=== PATIENT | female | born 1970 | race Caucasian/White ===

== ENCOUNTER 2018-11-27 11:54 | Emergency (ER) | payer MEDICAID, OTHER ==
[2018-11-27] MEDS ORDERED: ONDANSETRON HCL INJ/PF 4 MG/2 ML SDV IV ONE (12:02)
--- NOTE | 2018-11-27 12:03 | ER Document Report ---
ED Medical Screen (RME) - General Chief Complaint: Abdominal Pain Stated Complaint: INTOXICATED Time Seen by Provider: 11/27/18 12:00 Primary Care Provider: MONTSE JOHNSON MD [Primary Care Provider] - Follow up as needed Mode of Arrival: Wheelchair Information source: Patient, Friend Notes: Patient presents requesting treatment for alcoholism but also complains of right upper quadrant abdominal pain for the past 2 weeks. Patient does report nausea and vomiting. Patient does admit to drinking alcohol today. Patient does have a history of cirrhosis as well as COPD. I have greeted and performed a rapid initial assessment of this patient. A comprehensive ED assessment and evaluation of the patient, analysis of test results and completion of the medical decision making process will be conducted by additional ED providers. - Related Data Allergies/Adverse Reactions: Penicillins Allergy (Verified 11/27/18 12:02) Past Medical History - Social History Chew tobacco use (# tins/day): No Frequency of alcohol use: Heavy Drug Abuse: Marijuana Physical Exam - General Notes: Smells of alcohol, slurring of words, bilateral rhonchi, tenderness to right upper quadrant Doctor's Discharge - Discharge Referrals: MONTSE JOHNSON MD [Primary Care Provider] - Follow up as needed
[2018-11-27 12:49] LABS: ABSOLUTE BASOPHILS # (AUTO) 0.1 10^3/uL (0.0-0.2); ABSOLUTE EOSINOPHILS # (AUTO) 0.1 10^3/uL (0.0-0.6); ABSOLUTE LYMPHOCYTES (AUTO) 1.9 10^3/uL (0.5-4.7); ABSOLUTE MONOCYTES (AUTO) 0.4 10^3/uL (0.1-1.4); ABSOLUTE NEUT (AUTO) 3.2 10^3/uL (1.7-8.2); BASOPHILS % (AUTO) 1.2 % (0-2); EOSINOPHILS % (AUTO) 2.3 % (0-6); HEMOGLOBIN 16.1 g/dL (12.0-15.5); LYMPHOCYTES % (AUTO) 33.5 % (13-45); MEAN CORPUSCULAR HEMOGLOBIN 32.7 pg (27.0-33.4); MEAN CORPUSCULAR HGB CONC 34.3 g/dL (32.0-36.0); MEAN CORPUSCULAR VOLUME 95 fl (80-97); MONOCYTES % (AUTO) 6.6 % (3-13); PLATELET COUNT 301 10^3/uL (150-450); RED BLOOD COUNT 4.93 10^6/uL (3.72-5.28); RED CELL DISTRIBUTION WIDTH 13.7 % (11.5-14.0); SEGMENTED NEUTROPHILS % (AUTO) 56.4 % (42-78); TOTAL CELLS COUNTED % (AUTO) 100 %; WHITE BLOOD COUNT 5.8 10^3/uL (4.0-10.5)
--- NOTE | 2018-11-27 13:02 | RADIOLOGY REPORT (SQ) ---
EXAM DESCRIPTION: U/S ABDOMEN LIMITED W/O DOP COMPLETED DATE/TIME: 11/27/2018 12:47 pm REASON FOR STUDY: RUQ pain COMPARISON: None. TECHNIQUE: Dynamic and static grayscale images acquired of the abdomen and recorded on PACS. Additio nal selected color Doppler and spectral images recorded. LIMITATIONS: None. FINDINGS: PANCREAS: No masses. Visualized pancreatic duct normal caliber. LIVER: No masses. Echotexture normal. LIVER VASCULATURE: Normal directional flow of the main portal vein and hepatic veins. GALLBLADDER: No stones. Normal wall thickness. No pericholecystic fluid. ULTRASOUND-DETECTED SALOMON'S SIGN: Negative. INTRAHEPATIC DUCTS AND COMMON DUCT: CBD and intrahepatic ducts normal caliber. No filling defects. INFERIOR VENA CAVA: Normal flow. AORTA: No aneurysm. RIGHT KIDNEY: Normal size. Normal echogenicity. No solid or suspicious masses. No hydronephrosis. No calcifications. PERITONEAL AND RIGHT PLEURAL SPACE: No ascites or effusions. OTHER: No other significant findings. IMPRESSION: NORMAL RIGHT UPPER QUADRANT ULTRASOUND. TECHNICAL DOCUMENTATION: JOB ID: [id number] [employer]- All Rights Reserved Reading location - IP/workstation name: [email or web address]
[2018-11-27 13:05] LABS: ALBUMIN 4.9 g/dL (3.5-5.0); ALKALINE PHOSPHATASE 108 U/L (38-126); ANION GAP 16 (5-19); ASPARTATE AMINO TRANSFERASE 43 U/L (14-36); BILIRUBIN,DIRECT 0.2 mg/dL (0.0-0.4); BILIRUBIN,TOTAL 0.3 mg/dL (0.2-1.3); BLOOD UREA NITROGEN 13 mg/dL (7-20); CALCIUM 9.4 mg/dL (8.4-10.2); CARBON DIOXIDE 26 mmol/L (22-30); CHLORIDE 96 mmol/L (98-107); GLUCOSE 99 mg/dL (75-110); POTASSIUM 3.4 mmol/L (3.6-5.0); TOTAL PROTEIN 8.5 g/dL (6.3-8.2)
[2018-11-27 13:22] LABS: ALCOHOL 338 mg/dL (NONE DETECTED)
[2018-11-27] MEDS ORDERED: PANTOPRAZOLE SODIUM 40 MG VIAL IV ONE (14:18)
[2018-11-27] MEDS ORDERED: FAMOTIDINE INJ/PF 20 MG/2 ML SDV IV ONE (14:18)
--- NOTE | 2018-11-27 14:23 | ER Document Report ---
ED General - General Chief Complaint: Abdominal Pain Stated Complaint: INTOXICATED Time Seen by Provider: 11/27/18 12:00 Primary Care Provider: MONTSE JOHNSON MD [EMERITUS] - Follow up as needed Mode of Arrival: Wheelchair - [facility] Notes: Patient is a 48-year-old female with a 20-year history of alcohol dependence, cirrhosis, who presents to the emergency department for evaluation. Initially she states to me that she is here because she would like help quitting drinking. She states she drinks "a lot" of vodka every day. She states she does not know the size of the bottles. She is been drinking daily for 20 years. She states she believes she been self-medicating as she had lost child 3, has been drinking for 19 years since then. She states she has some abdominal pain, she really cannot describe it for me. She believes is secondary to her history of peptic ulcers and cirrhosis. She denies any melena or hematochezia. No emesis. - Related Data Allergies/Adverse Reactions: Penicillins Allergy (Verified 11/27/18 12:02) Home Medications: None Past Medical History - General Information source: Patient, Friend - Social History Smoking Status: Current Every Day Smoker Chew tobacco use (# tins/day): No Frequency of alcohol use: Heavy Drug Abuse: Marijuana Family History: Reviewed & Not Pertinent Patient has suicidal ideation: No Patient has homicidal ideation: No Neurological Medical History: Reports: Hx Seizures GI Medical History: Reports: Hx Cirrhosis, Hx Ulcer Review of Systems - Review of Systems Constitutional: No symptoms reported EENT: No symptoms reported Cardiovascular: No symptoms reported Respiratory: See HPI Gastrointestinal: No symptoms reported Genitourinary: No symptoms reported Musculoskeletal: No symptoms reported Skin: No symptoms reported Neurological/Psychological: See HPI Physical Exam - Vital signs Vitals: Pulse Resp BP Pulse Ox 108 H 20 101/58 L 90 L 11/27/18 12:02 11/27/18 12:02 11/27/18 12:02 11/27/18 12:02 - Notes Notes: Vital signs reviewed, please refer to chart. Head is normocephalic, atraumatic. Pupils equal round, reactive to light. Neck is supple without meningismus. Heart is regular rate and rhythm. Lungs are clear to auscultation bilaterally. Abdomen is soft, nontender, normoactive bowel sounds throughout. Extremities without cyanosis, clubbing. Posterior calves are nontender. Peripheral pulses are equal. Skin is warm and dry. Patient is awake, alert, neurological exam is nonfocal. He smells strongly of alcohol, diminished eye contact. She is intermittently tearful. Course - Re-evaluation Re-evalutation: 11/27/18 14:21 Patient presents emergency department for evaluation. She complains of alcohol dependence and abuse, is interested in receiving help. She also complained of some abdominal pain. Her laboratory investigations showed no clear etiology of her abdominal pain. Her ultrasound was unremarkable. My suspicion is that she is suffering from alcoholic gastritis. She is given Pepcid and Protonix here. At this point her blood alcohol level is very high, but she is coherent, able to interact well with examiner. Will place consult for psychosocial evaluation. 11/27/18 18:20 Psychosocial evaluation placed. We are setting up outpatient referral, possible care at [facility]. Patient became extremely agitated. She states that she wants to leave. She denies any suicidal or homicidal ideation. She denies any visual or auditory hallucination. Patient is not actively a danger to herself beyond her substance abuse, which is not new. I do not believe any criteria have been met to keep her against her will. The patient will be discharged, she is awaiting for a ride. She is given outpatient resources for alcohol abuse treatment. - Vital Signs Vital signs: Temp Pulse Resp BP Pulse Ox 108 H 24 H 115/83 94 11/27/18 12:02 11/27/18 17:01 11/27/18 17:00 11/27/18 17:01 - Laboratory Result Diagrams: 11/27/18 12:27 11/27/18 12:27 Laboratory results interpreted by me: 11/27/18 11/27/18 11/27/18 12:27 12:27 13:03 Hgb 16.1 H Potassium 3.4 L Chloride 96 L Est GFR (MDRD) Non-Af 51 L AST 43 H Ammonia < 8.7 L Total Protein 8.5 H Serum Alcohol 338 H* - Diagnostic Test Radiology reviewed: Reports reviewed Radiology results interpreted by me: 11/27/18 14:21 Abdomen Ultrasound 11/27/18 12:04 IMPRESSION: NORMAL RIGHT UPPER QUADRANT ULTRASOUND. Discharge - Discharge Clinical Impression: Alcohol abuse with intoxication, Alcoholic gastritis Condition: Stable Disposition: HOME, SELF-CARE Instructions: Abdominal Pain ([facility]), Chronic Alcoholism ([facility]), Acute Alcohol Intoxication ([facility]) Additional Instructions: Take medication as prescribed. Try to abstain from drinking. Follow-up as an outpatient as referred. Follow-up with your primary care physician this week. Return to the emergency department with worsening or new concerning symptoms of any sort. Referrals: MONTSE JOHNSON MD [EMERITUS] - Follow up as needed
--- NOTE | 2018-11-27 14:31 | RADIOLOGY REPORT (SQ) ---
EXAM DESCRIPTION: ACUTE ABDOMEN SERIES COMPLETED DATE/TIME: 11/27/2018 2:11 pm REASON FOR STUDY: cough, RUQ pain COMPARISON: None. NUMBER OF VIEWS: Three views. TECHNIQUE: Frontal chest, supine abdomen and upright/decubitus abdomen radiographic images acquired. LIMITATIONS: None. FINDINGS: CHEST: Lungs clear of infiltrates. FREE AIR: None. No abnormal gas collections. BOWEL GAS PATTERN: Nonobstructive pattern. No dilated loops or air fluid levels. CALCIFICATIONS: No suspicious calcifications. HARDWARE: None in the abdomen. SOFT TISSUES: No gross mass or suggestion of organomegaly. BONES: No acute fracture. No worrisome bone lesions. OTHER: No other significant finding. IMPRESSION: NO RADIOGRAPHIC EVIDENCE FOR ACUTE ABDOMINAL DISEASE. TECHNICAL DOCUMENTATION: JOB ID: [id number] [employer]- All Rights Reserved Reading location - IP/workstation name: [email or web address]
[2018-11-27 18:01] VITALS: BP 115/83
[2018-11-27 19:49] LABS: APPEARANCE,URINE SLIGHTLY-CLOUDY; BILIRUBIN,URINE NEGATIVE (NEGATIVE); COLOR,URINE YELLOW; GLUCOSE, URINE NEGATIVE (NEGATIVE); KETONES,URINE NEGATIVE (NEGATIVE); LEUKOCYTE ESTERASE,URINE SMALL (NEGATIVE); NITRITE,URINE NEGATIVE (NEGATIVE); PROTEIN,URINE NEGATIVE (NEGATIVE); URINE SPECIFIC GRAVITY 1.004; UROBILINOGEN,URINE NEGATIVE mg/dL (<2.0)
--- NOTE | 2018-11-29 09:26 | PSYCHOLOGICAL NOTE ---
Psych Note - Psych Note Date seen by psych provider: 11/27/18 Time seen by psych provider: 12:27 - Chart review at 1227. Discussion with ED Physician at 1420. Spoke to patient at 1830. Psych Note: Presenting Problem: Alcohol intoxication (Serum Alcohol level was 338 upon arrival to the ED) and desire for detox. Following information comes from chart review and discussion with ED Physician. Patient has been drinking for 20 years, her son was 3 years old when he which is what triggered the drinking, there has been depression. Patient has a Hx of acute alcohol poisoning with seizures as withdrawal symptom. She had been to [facility] for previous treatment some of which required hospitalization for a month. 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 Spoke to Melvina at [facility] for linkage and referral. Sent referral packet. She noted concern with need for higher level of care due to past treatment where seizures were withdrawal symptom. She stated she would hold a bed and have the doctors and nurses review the referral. She identified patient could not come to their facility until 2200. This was partly due to patient's alcohol level not being at 200 or less until 1920 and the other intakes the facility has scheduled. Medical staff noted patient wanted to leave AMA. Spoke to patient about linkage and referral to [facility] for voluntary alcohol detox. She was on board with it until she learned she would have to wait to go to facility at 2200. Psychoeducated on how though there is a 3 hour wait often alcohol detox takes 1- 3 days to get into because of bed availability. She then focused on not getting medical attention, complained of left foot pain and not being able to walk on it after doing something to it the other day. ED Physician made aware and noted presenting compliant was abdominal pain and alcohol detox. Diagnosis: Alcohol Use Disorder, Severe Grief (son's at age 3 which seemed to be trigger to drinking) Depressive Disorder Impression/Plan: Patient is cleared from acute psychiatric services. She presented with a friend for desire for alcohol detox. She slept for awhile in the ED and when she woke up she was irritable. She said she had not been seen for her medical compliant of ankle pain and difciculty walking. ED Physician made aware and did check ankle, however it had not been presenting concern which is why not addressed previously. She was made aware of linkage and referral to [facility] and ability to go to facility at 2200. She was not on board with having to wait 3 more hours even after being made aware it often takes days to get into detox due to bed availability. She was encouraged to stay and wait so she can go directly from the ED to [facility] that way she could be monitored until then for alcohol withdrawal. She was provided the resource sheet which highlighted [facility] and documented acceptance at 2200. She was made aware even if she left the ED, which was not recommended, she could still go to [place] at 2200 and would need to contact them. Consulted with Dr. Castillo regarding the management and care of patient. ED physician in agreement with recommendations and informed medical staff if patient wanted to leave AMA she could as long as she had someone pick her up/provide transportation.
== END 2018-11-27 22:45 | disposition home or self-care (01) ==
LOC: ER 11:54
DX: K29.20 Alcoholic gastritis without bleeding (principal); F10.229 Alcohol dependence with intoxication, unspecified; R10.9 Unspecified abdominal pain; F12.10 Cannabis abuse, uncomplicated; F17.200 Nicotine dependence, unspecified, uncomplicated; Z87.11 Personal history of peptic ulcer disease; Z87.19 Personal history of other diseases of the digestive system; Z88.0 Allergy status to penicillin
CPT/HCPCS: 36415; 80307; 82140; 83690; 85025; 80053; 81001; 74022; 76705; S0164; J2405; S0028; 96374; 96375; 99285